=== PATIENT | female | born 1990 | race Caucasian/White ===

== ENCOUNTER → 2016-09-16 | Outpatient (REF) | payer OTHER | END | disposition home or self-care (01) | LOC: M LAB REF 12:42 | PROVIDERS: ATTEND Advanced Practice Midwife | DX: Z34.83 Encounter for supervision of other normal pregnancy, third trimester (principal); Z36 Encounter for antenatal screening of mother; Z3A.00 Weeks of gestation of pregnancy not specified ==

== ENCOUNTER → 2016-10-08 | Outpatient (REF) | payer OTHER ==
[~2016-10-08] MED LIST: PRENTAB9 PO
== END | disposition home or self-care (01) ==
LOC: M LAB REF 16:53
PROVIDERS: ATTEND Specialist
DX: Z34.83 Encounter for supervision of other normal pregnancy, third trimester (principal); Z36 Encounter for antenatal screening of mother; Z3A.00 Weeks of gestation of pregnancy not specified

== ENCOUNTER 2016-10-10 14:53 | Outpatient (CLI) | payer OTHER ==
[~2016-10-10] VITALS: Ht 157.5 cm; Wt 82.0 kg
[2016-10-10] MEDS ORDERED: PRENTAB9 PO (15:14)
[2016-10-10 15:58] LABS: MEAN CORPUSCULAR HEMOGLOBIN 28.8 pg (27.0-33.0); MEAN CORPUSCULAR HGB CONC 33.1 g/dl (32.0-36.5); MEAN CORPUSCULAR VOLUME 87.2 fl (80.0-96.0); RED CELL DISTRIBUTION WIDTH 13.4 % (11.5-14.5); WHITE BLOOD COUNT 9.2 K/mm3 (4.0-10.0)
[2016-10-10 20:06] VITALS: BP 100/63
[2016-10-12] MEDS ORDERED: ADACEL/BOOSTRIX VACCINE (DIPHTH/PERTUSS/ACELL/TETANUS)0.5ML SYR (90715) IM ONE (09:00)
== END 2016-10-10 21:40 | disposition home or self-care (01) ==
LOC: M LDO 14:53 → UNDODISIN 21:40 → EDSTATUS 10-11 09:01
PROVIDERS: ATTEND Obstetrics & Gynecology
DX: O47.1 False labor at or after 37 completed weeks of gestation (principal); Z3A.37 37 weeks gestation of pregnancy

== ENCOUNTER 2016-10-12 16:32 | Inpatient (IN) | payer OTHER ==
[2016-10-12] VITALS (23 sets, daily range): BP systolic 101–149; BP diastolic 58–94
[~2016-10-12] VITALS: Ht 157.5 cm; Wt 81.0 kg
[2016-10-12] MEDS ORDERED: LACTATED RINGER'S 1000 ML IV STA (18:04)
[2016-10-12] MEDS ORDERED: LR 1,000 ML IV SCH (18:04)
[2016-10-12] MEDS ORDERED: BUTORPHANOL 2 MG/ML INJ (J0595) IV ONE (18:30)
[2016-10-12] MEDS ORDERED: PROMETHAZINE INJ 25 MG/ML VIAL (J2550) IV ONE (18:30)
[2016-10-12 18:52] LABS: MEAN CORPUSCULAR HGB CONC 33.6 g/dl (32.0-36.5); MEAN CORPUSCULAR VOLUME 86.5 fl (80.0-96.0); RED CELL DISTRIBUTION WIDTH 13.4 % (11.5-14.5); WHITE BLOOD COUNT 9.1 K/mm3 (4.0-10.0)
[2016-10-12] MEDS ORDERED: FENTANYL 2MCG/ML ROPIVACAINE 0.2% NACL 250 ML CADD As Ordered ONE (20:15)
[2016-10-12] MEDS ORDERED: OXYTOCIN 30 UNITS IN 0.9% NaCl 500ML IV BAG (J2590) As Ordered ONE (20:51)
[2016-10-12] MEDS ORDERED: REFRIGERATOR IV KEYS XX PRN (21:25)
[2016-10-12] MEDS ORDERED: EPIDURAL/PCA KEYS XX PRN (21:25)
[2016-10-12] MEDS ORDERED: ONDANSETRON 4MG/2ML VIAL (J2405) IV PRN ×2 (21:25→23:15)
[2016-10-12] MEDS ORDERED: NALOXONE INJ 0.4 MG/1 ML VIAL (J2310) IV PRN (21:25)
[2016-10-12] MEDS ORDERED: diphenhydrAMINE INJ 50MG/ML VIAL (J1200) IV PRN (21:25)
[2016-10-12] MEDS ORDERED: LACTATED RINGER'S 1000 ML IV PRN (21:25)
[2016-10-12] MEDS ORDERED: FENTANYL/ROPIVACAINE/NACL CADD 250 ML EPIDURAL SCH (21:25)
[2016-10-12] MEDS ORDERED: ePHEDrine SULFATE 25 MG/5 ML(5MG/ML) SYRINGE IV PRN (21:25)
[2016-10-12] MEDS ORDERED: EPIDURAL COMMENT XX SCH (21:25)
[2016-10-12] MEDS ORDERED: NALOXONE INJ 0.4 MG/1 ML VIAL (J2310) As Ordered ONE (21:30)
[2016-10-12] MEDS ORDERED: OXYTOCIN DRIP 30 UNITS in APPROPRIATE DILUENT 1 EA IV SCH (23:05)
[2016-10-12] MEDS: LR 1,000 ML IV SCH (23:05)
[2016-10-12] MEDS ORDERED: RHOGAM 300 MCG (1500 IU) INJ (J2790) IM SCH (23:15)
[2016-10-12] MEDS ORDERED: DIBUCAINE 1% OINTMENT 30GM TOP PRN (23:15)
[2016-10-12] MEDS ORDERED: ACETAMINOPHEN 500 MG TAB PO PRN (23:15)
[2016-10-12] MEDS ORDERED: PROMETHAZINE 25 MG TAB PO PRN (23:15)
[2016-10-12] MEDS ORDERED: DOCUSATE SODIUM 100 MG CAP PO PRN (23:15)
[2016-10-12] MEDS ORDERED: MEASLES,MUMPS,RUBELLA VACCINE INJ (MMR-II) (90707) SC SCH (23:15)
[2016-10-13 00:07] VITALS: BP 125/78
[2016-10-13 00:22] VITALS: BP 113/73
[2016-10-13 00:37] VITALS: BP 116/73
[2016-10-13] MEDS: LR 1,000 ML IV SCH ×3 (01:17→22:52)
[2016-10-13 01:30] VITALS: BP 111/58
[2016-10-13] MEDS: IBUPROFEN 800 MG TAB PO PRN ×2 (04:35→15:43)
[2016-10-13 05:30] VITALS: BP 104/56
[2016-10-13] MEDS: PRENATAL VITAMIN TAB PO SCH (07:56)
[2016-10-13] MEDS ORDERED: ADACEL/BOOSTRIX VACCINE (DIPHTH/PERTUSS/ACELL/TETANUS)0.5ML SYR (90715) IM ONE (09:00)
[2016-10-13 18:04] VITALS: BP 122/83
[2016-10-14 06:04] VITALS: BP 107/59
[2016-10-14] MEDS: LR 1,000 ML IV SCH (07:05)
[2016-10-14] MEDS: PRENATAL VITAMIN TAB PO SCH (07:52)
[2016-10-14] MEDS: IBUPROFEN 800 MG TAB PO PRN (07:53)
[2016-10-14] MEDS ORDERED: IBUP-1114 PO (12:25)
[2016-10-14] MEDS ORDERED: ACET50TA PO (12:25)
== END 2016-10-14 13:40 | disposition home or self-care (01) | DRG 560 ==
LOC: M LDO 16:32 → M LDI 17:57 → M OBS 10-13 01:29
PROVIDERS: ADMIT Obstetrics & Gynecology; ATTEND Obstetrics & Gynecology
PROC: 10E0XZZ Delivery of Products of Conception, External Approach (ICD-10-PCS; principal; 2016-10-12)
PROC: 0HBAXZZ Excision of Inguinal Skin, External Approach (ICD-10-PCS; 2016-10-12)
DX: O99.89 Other specified diseases and conditions complicating pregnancy, childbirth and the puerperium (principal); N84.3 Polyp of vulva; Z3A.37 37 weeks gestation of pregnancy; Z37.0 Single live birth; Z91.19 Patient's noncompliance with other medical treatment and regimen

== ENCOUNTER → 2017-02-05 | Outpatient (CLI) | payer OTHER ==
[~2017-02-05] MED LIST changes: +ACET50TA PO; +IBUP-1114 PO
--- NOTE | 2017-02-06 05:14 | REP ---
Clinical: Dating and viability. Technique: Transabdominal first trimester obstetrical ultrasound with color Doppler evaluation. Findings: Single live early intrauterine is appreciated. Gestational sac with yolk sac and pole identified. [place]-rump length of 7 mm corresponds to 6 weeks 4 days gestational age with estimated date of delivery 09/27/2017 . heart rate equals 124 beats per minute. No gross abnormalities are identified. Impression: Single live early intrauterine at 6 weeks 4 days gestational age. Complete anatomical assessment should be performed and 19-20 weeks. Signed by Cortes Kelley MD 02/06/2017 05:05 A
== END ==
LOC: M RAD 13:49
PROVIDERS: ATTEND Registered Nurse
DX: Z32.01 Encounter for pregnancy test, result positive (principal); Z36 Encounter for antenatal screening of mother; Z3A.01 Less than 8 weeks gestation of pregnancy

== ENCOUNTER → 2017-03-13 | Outpatient (CLI) | payer OTHER ==
[2017-03-13 12:59] LABS: MEAN CORPUSCULAR HEMOGLOBIN 29.4 pg (27.0-33.0); MEAN CORPUSCULAR HGB CONC 33.8 g/dl (32.0-36.5); WHITE BLOOD COUNT 5.9 K/mm3 (4.0-10.0)
[2017-03-13 13:22] LABS: ALBUMIN 3.8 GM/DL (3.2-5.2); ALBUMIN/GLOBULIN RATIO 0.95 (1.00-1.93); ALKALINE PHOSPHATASE 126 U/L (45-117); ALT/SGPT 28 U/L (12-78); ANION GAP 8 MEQ/L (8-16); AST/SGOT 21 U/L (15-37); BILIRUBIN,TOTAL 0.4 MG/DL (0.2-1.0); BLOOD UREA NITROGEN 10 MG/DL (7-18); CALCIUM LEVEL 9.1 MG/DL (8.5-10.1); CARBON DIOXIDE LEVEL 24 MEQ/L (21-32); CHLORIDE LEVEL 108 MEQ/L (98-107); CREATININE FOR GFR 0.72 MG/DL (0.55-1.02); FERRITIN 34 NG/ML (8-252); GLOMERULAR FILTRATION RATE > 60.0 (>60); GLUCOSE, FASTING 101 MG/DL (70-105); PERCENT SATURATION 9.9 % (13.2-37.4); POTASSIUM SERUM 4.2 MEQ/L (3.5-5.1); SODIUM LEVEL 140 MEQ/L (136-145); TOTAL IRON BINDING CAPACITY 352 UG/DL (250-450); TOTAL PROTEIN 7.8 GM/DL (6.4-8.2)
== END ==
LOC: M WUC 08:50
PROVIDERS: ATTEND Nurse Practitioner Adult Health
DX: Z00.00 Encounter for general adult medical examination without abnormal findings (principal); Z86.2 Personal history of diseases of the blood and blood-forming organs and certain disorders involving the immune mechanism

== ENCOUNTER → 2017-03-18 | Outpatient (CLI) | payer OTHER ==
[~2017-03-18] MED LIST changes: +METHACHOLINE KIT (J7674) INH ONE
--- NOTE | 2017-03-18 16:39 | PFTRPT ---
Tech: Bernabe ANTONIO RRT Age: 26 Sex: Female Race: Height: 62.00 Inches Weight: 168.00 Lbs BSA: 1.77 Diagnosis: R06.02 PULMONARY FUNCTION REPORT ORDERING PROVIDER: LICHA Abarca DATE OF SERVICE: 03/18/17 SPIROMETRY: Excellent technical quality. The forced vital capacity is normal. The FEV1 is in proportion. The obstructive index is, therefore, normal. FLOW VOLUME LOOP: The expiratory limb of the flow volume loop is normal. LUNG VOLUMES: The total lung capacity is normal. The residual volume is in proportion. DIFFUSION CAPACITY: The diffusion capacity is normal. HEMOGLOBIN: No hemoglobin is available for correction. AIRWAY MECHANICS: Airways resistance and conductance are normal. IMPRESSION: Normal study. MTDD
--- NOTE | 2017-03-18 17:11 | PFTRPT ---
Tech: Bernabe ANTONIO RRT Age: 26 Sex: Female Race: Height: 62.00 Inches Weight: 168.00 Lbs BSA: 1.77 Diagnosis: R06.02 METHACHOLINE CHALLENGE REPORT: ORDERING PROVIDER: LICHA Abarca DATE OF SERVICE: 03/18/17 INTERPRETATION: The study was of excellent technical quality. Under protocol, methacholine was administered. At a dose of 2.5 mg (13.875 CDUs), a 31% decline in the FEV1 was noted. The PC20 of 0.82 is significant. Flow rates returned to baseline post bronchodilator administration. IMPRESSION: Positive methacholine challenge study. MTDD
== END ==
LOC: M CARPUL 16:20
PROVIDERS: ATTEND Nurse Practitioner Adult Health
DX: R06.02 Shortness of breath (principal)

== ENCOUNTER → 2018-07-13 | Outpatient (REF) | payer OTHER | LOC: M SFHCPLAZ 13:30 | DX: Z83.49 Family history of other endocrine, nutritional and metabolic diseases (principal) ==

== ENCOUNTER 2018-11-28 21:09 | Emergency (ER) | payer OTHER ==
[~2018-11-28] VITALS: Ht 160 cm; Wt 86.4 kg
[~2018-11-28 21:09] MED LIST changes: -ACET50TA PO; +MAPA500T2 PO; -METHACHOLINE KIT (J7674) INH ONE
[2018-11-28 21:10] VITALS: BP 123/73
[2018-11-28] MEDS ORDERED: IBUPROFEN 800 MG TAB PO ONE (21:45)
--- NOTE | 2018-11-29 09:21 | REP ---
Clinical: Trauma/injury to first digit Technique: AP, lateral, bilateral oblique views left hand . Findings: The osseous structures and joint spaces are intact and normal. There is no evidence for acute fracture or dislocation. Surrounding soft tissues are unremarkable. No subcutaneous emphysema or radiodense foreign body. Impression: No acute fracture or dislocation. Electronically Signed by Cortes Kelley MD 11/29/2018 09:11 A
== END 2018-11-28 21:57 | disposition home or self-care (01) ==
LOC: M ED 21:09
DX: S60.012A Contusion of left thumb without damage to nail, initial encounter (principal); W23.0XXA Caught, crushed, jammed, or pinched between moving objects, initial encounter; Y92.009 Unspecified place in unspecified non-institutional (private) residence as the place of occurrence of the external cause; Z91.013 Allergy to seafood

== ENCOUNTER → 2022-02-27 | Outpatient (REF) | payer OTHER ==
[2022-02-27 16:41] LABS: BASO % 0.5 % (0.0-1.0); EOS # 0.3 10^3/uL (0.0-0.5); EOS % 3.7 % (0.0-3.0); HEMATOCRIT 39.9 % (36.0-47.0); LYMPH # 2.1 10^3/uL (1.5-5.0); LYMPH % 26.6 % (24.0-44.0); MEAN CORPUSCULAR HEMOGLOBIN 28.5 pg (27.0-33.0); MEAN CORPUSCULAR HGB CONC 32.6 g/dl (32.0-36.5); MEAN CORPUSCULAR VOLUME 87.5 fl (80.0-96.0); MONO # 0.6 10^3/uL (0.0-0.8); MONO % 7.5 % (2.0-8.0); NEUTROPHILS # 4.8 10^3/uL (1.5-8.5); NEUTROPHILS % 61.4 % (36.0-66.0); PLATELET COUNT, AUTOMATED 235 10^3/uL (150-450); RED BLOOD COUNT 4.56 10^6/uL (4.00-5.40); WHITE BLOOD COUNT 7.9 10^3/uL (4.0-10.0)
[2022-02-27 17:22] LABS: ALBUMIN 4.2 GM/DL (3.2-5.2); ALT/SGPT 28 U/L (12-78); BLOOD UREA NITROGEN 10 MG/DL (7-18); CARBON DIOXIDE LEVEL 25 MEQ/L (21-32); CHLORIDE LEVEL 107 MEQ/L (98-107); CREATININE FOR GFR 0.84 MG/DL (0.55-1.30); GLOMERULAR FILTRATION RATE > 60.0 (>60); GLUCOSE, FASTING 88 MG/DL (70-100); POTASSIUM SERUM 3.3 MEQ/L (3.5-5.1); SODIUM LEVEL 140 MEQ/L (136-145)
[2022-02-27 17:28] LABS: TOTAL 25(OH) VITAMIN D 37.2 NG/ML (30.0-100.0)
[2022-02-27 17:29] LABS: VITAMIN B12 LEVEL 404 PG/ML (247-911)
== END ==
LOC: M LAB REF 16:23
PROVIDERS: ATTEND Physician Assistant
DX: R53.83 Other fatigue (principal)

== ENCOUNTER 2022-11-23 09:49 | Emergency (ER) | payer OTHER ==
[~2022-11-23] VITALS: Ht 162.6 cm; Wt 105.1 kg
[2022-11-23] MEDS ORDERED: ACET-683 PO (10:03)
[2022-11-23 10:33] LABS: BASO % 0.3 % (0.0-1.0); EOS # 0.2 10^3/uL (0.0-0.5); EOS % 1.8 % (0.0-3.0); HEMATOCRIT 39.6 % (36.0-47.0); HEMOGLOBIN 13.1 g/dl (12.0-15.5); LYMPH % 8.9 % (24.0-44.0); MEAN CORPUSCULAR HGB CONC 33.1 g/dl (32.0-36.5); MEAN CORPUSCULAR VOLUME 87.8 fl (80.0-96.0); MONO # 0.7 10^3/uL (0.0-0.8); MONO % 5.9 % (2.0-8.0); NEUTROPHILS # 9.6 10^3/uL (1.5-8.5); NEUTROPHILS % 82.7 % (36.0-66.0); PLATELET COUNT, AUTOMATED 221 10^3/uL (150-450); RED BLOOD COUNT 4.51 10^6/uL (4.00-5.40); WHITE BLOOD COUNT 11.7 10^3/uL (4.0-10.0)
[2022-11-23 11:02] LABS: CK-MB VALUE MASS < 1.0 NG/ML (<3.6)
[2022-11-23 11:03] LABS: LIPASE 31 U/L (12-53); RSV AMPLIFICATION NEGATIVE (NEGATIVE)
[2022-11-23 11:05] LABS: ALBUMIN 3.8 G/DL (3.2-5.2); ALKALINE PHOSPHATASE 137 U/L (46-116); ALT/SGPT 22 U/L (7.0-40); AST/SGOT 18 U/L (<34); BILIRUBIN,DIRECT 0.1 MG/DL (<0.4); BILIRUBIN,TOTAL 0.4 MG/DL (0.3-1.2); BLOOD UREA NITROGEN 16 MG/DL (9-23); CALCIUM LEVEL 9.1 MG/DL (8.5-10.1); CARBON DIOXIDE LEVEL 24 MMOL/L (20-31); CHLORIDE LEVEL 107 MMOL/L (98-107); CPK CREATINE PHOSPHOKINASE 63 U/L (34-145); CREATININE FOR GFR 0.69 MG/DL (0.55-1.30); GLOMERULAR FILTRATION RATE > 60.0 (>60); GLUCOSE, FASTING 93 MG/DL (60-100); MB/CK RELATIVE INDEX 1.58 (< OR =4); POTASSIUM SERUM 4.2 MMOL/L (3.5-5.1); SODIUM LEVEL 140 MMOL/L (136-145); TOTAL PROTEIN 7.4 G/DL (5.7-8.2)
[2022-11-23 11:06] LABS: HCG, SERUM QUALITATIVE NEGATIVE (NEGATIVE); THYROID STIMULATING HORMONE 2.896 uIU/ML (0.55-4.78)
[2022-11-23 11:07] LABS: FREE T4 0.99 NG/DL (0.89-1.76)
[2022-11-23] MEDS ORDERED: ISOVUE-370 76% 100ML VIAL As Ordered ONE (11:20)
[2022-11-23 12:37] LABS: CK-MB VALUE MASS < 1.0 NG/ML (<3.6)
[2022-11-23 12:38] LABS: CPK CREATINE PHOSPHOKINASE 58 U/L (34-145); MB/CK RELATIVE INDEX 1.72 (< OR =4)
[2022-11-23 13:02] VITALS: BP 106/67
== END 2022-11-23 13:28 | disposition home or self-care (01) ==
LOC: EDBD 09:49 → M ED 09:49
DX: R07.9 Chest pain, unspecified (principal); R11.10 Vomiting, unspecified; H43.399 Other vitreous opacities, unspecified eye; I49.49 Other premature depolarization; F10.10 Alcohol abuse, uncomplicated; Z79.1 Long term (current) use of non-steroidal anti-inflammatories (NSAID); Z91.013 Allergy to seafood
CPT/HCPCS: 36415; 70450; 71045; 71275; 74177; 80048; 80076; 82550; 82553; 83690; 84439; 84443; 84703; 85025; 87631; 93005; 93041; 94760; 99285; Q9967